=== PATIENT | male | born 1960 | race Caucasian/White ===

== ENCOUNTER 2020-07-29 14:01 | Inpatient (IN) | payer BC ==
[2020-07-29] VITALS (9 sets, daily range): BP systolic 100–141; BP diastolic 59–89
[~2020-07-29] VITALS: Ht 175.3 cm; Wt 72.0 kg
[2020-07-29] MEDS ORDERED: morphine 2 MG/ML inj. syringe IV ONE (14:40)
[2020-07-29 14:45] LABS: BASOPHILS # (AUTO) 0.1 X10'3 (0-0.2); BASOPHILS % (AUTO) 0.4 % (0-1); EOSINOPHILS % (AUTO) 0.4 % (0-6); HEMATOCRIT 45.5 % (42.0-52.0); HEMOGLOBIN 14.9 g/dl (14.0-17.9); LYMPHOCYTES # (AUTO) 2.3 X10'3 (1.1-4.8); LYMPHOCYTES % (AUTO) 20.7 % (21-51); MEAN CORPUSCULAR HEMOGLOBIN 30.7 PG (27.0-31.0); MEAN CORPUSCULAR HGB CONC 32.8 g/dL (33.0-36.5); MEAN CORPUSCULAR VOLUME 93.7 FL (78-98); MEAN PLATELET VOLUME 10.7 FL (7.4-10.4); MONOCYTES % (AUTO) 8.6 % (2-12); NEUTROPHILS # (AUTO) 7.9 X10'3 (1.8-7.7); NEUTROPHILS % (AUTO) 69.9 % (42-75); PLATELET COUNT 247 X10'3 (140-440); RED BLOOD COUNT 4.86 X10'6 (4.70-6.10); RED CELL DISTRIBUTION WIDTH 13.1 % (11.5-14.5); WHITE BLOOD COUNT 11.2 X10'3 (4.5-11.0)
[2020-07-29] MEDS ORDERED: ondansetron/PF 4mg/2ml inj IM ONE (14:45)
[2020-07-29 15:04] LABS: ALANINE AMINOTRANSFERASE 38 U/L (12-78); ALBUMIN 3.6 G/DL (3.4-5.0); ALBUMIN/GLOBULIN RATIO 1.2 (1.1-1.5); ALKALINE PHOSPHATASE 78 IU/L (46-116); ANION GAP 6 (8-16); ASPARTATE AMINO TRANSFERASE 116 U/L (10-37); BILIRUBIN,TOTAL 0.8 MG/DL (0.1-1.0); BLOOD UREA NITROGEN 12 MG/DL (7-18); BUN/CREATININE RATIO 12.5 (5.4-32.0); CHLORIDE 105 MMOL/L (99-107); CREATININE 0.96 MG/DL (0.60-1.10); GLUCOSE 86 MG/DL (70-104); POTASSIUM 4.2 MMOL/L (3.5-5.1); SODIUM 140 MMOL/L (135-145); TOTAL CARBON DIOXIDE 29.4 MMOL/L (24-32); TOTAL PROTEIN 6.5 G/DL (6.4-8.2); eGFR 80 ML/MIN
[2020-07-29] MEDS ORDERED: TRAM50TA2 PO (15:12)
[2020-07-29] MEDS ORDERED: MULT-1085 PO (15:12)
[2020-07-29] MEDS ORDERED: LISI40TA4 PO (15:12)
[2020-07-29] MEDS ORDERED: BUPR100T5 PO (15:12)
[2020-07-29] MEDS ORDERED: ATOR40TA71 PO (15:12)
[2020-07-29] MEDS ORDERED: MELO-102 PO (15:12)
[2020-07-29] MEDS ORDERED: INUL2TAB5 PO (15:12)
[2020-07-29] MEDS ORDERED: DIPYRIDAMOLE 25 MG PO STA (15:13)
[2020-07-29] MEDS ORDERED: TIZA2TAB7 PO (15:13)
--- NOTE | 2020-07-29 15:26 | NUR ---
ASKED DR. 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
--- NOTE | 2020-07-29 15:28 | NUR ---
DYPERIDAMOLE NOT AVAILABLE IN THE [facility],PHARMACY TO DELIVER.
--- NOTE | 2020-07-29 15:33 | NUR ---
dr. barrett at bedside.
[2020-07-29 15:51] LABS: PLATELET ESTIMATE NORMAL
[2020-07-29 15:52] LABS: LARGE PLATELETS FEW
[2020-07-29] MEDS ORDERED: LIDOcaine/PRILOcaine 5gm cream TP ONE (15:55)
[2020-07-29] MEDS: tirofiban 5mg in NS 100mL 100 ML IV SCH ×2 (16:04→19:29)
[2020-07-29] MEDS ORDERED: diphenhydrAMINE 50 mg/ml inj ONE (16:12)
[2020-07-29] MEDS ORDERED: verapamil 2.5 mg/ml inj IV ONE (16:12)
[2020-07-29] MEDS ORDERED: heparin 1,000unit/ml 10ml vial 10 ML ONE (16:12)
[2020-07-29] MEDS ORDERED: midazolam 2 mg/2 ml injection ONE (16:12)
[2020-07-29] MEDS ORDERED: LIDOcaine 1% (10mg/ml)w/preservative injection 20ml MDV ONE (16:12)
[2020-07-29] MEDS ORDERED: fentaNYL/PF 50MCG/1 ML 2ML syringe ONE (16:12)
[2020-07-29] MEDS ORDERED: nitroGLYCERIN-Tridil 50MG/D5W 250 ML IV ONE (16:12)
[2020-07-29] MEDS ORDERED: iohexol 350 MG/1 ML 200ml bottle ONE (16:13)
[2020-07-29] MEDS ORDERED: famotidine/PF 10 mg/ml inj IV ONE (16:13)
[2020-07-29] MEDS ORDERED: iohexol 350 MG/ML 50ML vial IV ONE (16:13)
--- NOTE | 2020-07-29 16:20 | NUR ---
bolusing patient with aggrenox per order.bolusing 36ml over 5 minutes. Addendum: 07/29/20 at 1621 by MOHAMUD giving aggrestat.
--- NOTE | 2020-07-29 16:22 | NUR ---
GROUT MACHINE TENDER RN AT BEDSIDE.
--- NOTE | 2020-07-29 16:27 | NUR ---
PATIENT TO CLINIC OFFICE MANAGER.EXTENSION TUBING PLACED,PATIENT STILL RECEIVING BOLUS OF AGGRASTAT.REMAINS ASYMPTOMATIC.
[2020-07-29] MEDS ORDERED: clopidogrel 300mg tablet ONE (17:22)
[2020-07-29] MEDS ORDERED: nitroGLYCERIN 0.4mg SUBLingual tab SL ONE (17:34)
--- NOTE | 2020-07-29 18:31 | NUR ---
PAGED HOSPITALIST GROUP: "PAGER ID: [phone] MESSAGE: [phone] PT [facility] HOSPITALIST TO ADMIT, KATHI NOT ADMITTING. ONLY CONSULT. THANK YOU. PATRIA [id number]"
[2020-07-29] MEDS: normal saline 1000ml 1,000 ML IV SCH (18:45)
[2020-07-29] MEDS ORDERED: magnesium 2GM in 50ml NS 50 ML IV PRN (19:00)
[2020-07-29] MEDS ORDERED: mag hydrox/Alum hydrox/simeth 30ml oral suspension PO PRN (19:00)
[2020-07-29] MEDS ORDERED: HYDROcodone/acetaminophen 5mg/325mg tablet PO PRN (19:00)
[2020-07-29] MEDS ORDERED: magnesium 4gm in 100ml NS 100 ML IV PRN (19:00)
[2020-07-29] MEDS ORDERED: potassium Cl 20 mEq SR tablet PO PRN ×2 (19:00)
[2020-07-29] MEDS ORDERED: acetaminophen 325mg tablet PO PRN ×2 (19:00)
[2020-07-29] MEDS ORDERED: diphenhydrAMINE 25mg capsule PO PRN (19:00)
[2020-07-29] MEDS ORDERED: bisacodyl 10mg suppository rectal RC PRN (19:00)
[2020-07-29] MEDS ORDERED: acetaminophen 650mg rectal suppository RC PRN (19:00)
[2020-07-29] MEDS ORDERED: magnesium Cl slow-release 64mg tablet PO PRN (19:00)
[2020-07-29] MEDS ORDERED: morphine 2 MG/ML inj. syringe IV PRN ×2 (19:00)
[2020-07-29] MEDS ORDERED: ondansetron/PF 4mg/2ml inj IV PRN (19:00)
[2020-07-29] MEDS ORDERED: potassium CL 10mEq/100ml bag 100 ML IV PRN ×2 (19:00)
[2020-07-29] MEDS ORDERED: magnesium hydroxide 30ml (MOM) UD suspension PO PRN (19:00)
[2020-07-29] MEDS: K and/or MAG REPLACEMENT MC SCH (19:25)
[2020-07-29] MEDS: HYDROcodone/acetaminophen 10/325mg tab PO PRN (19:30)
[2020-07-29] MEDS: lisinopril 20mg tablet PO SCH (19:31)
[2020-07-29] MEDS: metoprolol tartrate 25mg tablet PO SCH (19:31)
[2020-07-29] MEDS: buPROPion SR 100mg tab PO SCH (19:32)
[2020-07-29 19:57] LABS: HEMOGLOBIN A1C 5.5 % (4.5-6.2)
[2020-07-29] MEDS ORDERED: non-formulary drug (Lisinopril* 1 TAB) PO SCH (21:00)
[2020-07-29] MEDS ORDERED: atorvastatin 20mg tablet PO SCH (21:00)
[2020-07-29] MEDS ORDERED: multivitamins, therapeutics tablet PO SCH (21:00)
[2020-07-30 00:15] VITALS: BP 100/59
[2020-07-30] MEDS: normal saline 1000ml 1,000 ML IV SCH (01:25)
[2020-07-30 02:00] VITALS: BP 92/58
[2020-07-30] MEDS: HYDROcodone/acetaminophen 10/325mg tab PO PRN ×2 (05:09→15:15)
[2020-07-30 05:52] LABS: BASOPHILS % (AUTO) 0.5 % (0-1); EOSINOPHILS # (AUTO) 0.1 X10'3 (0-0.9); EOSINOPHILS % (AUTO) 1.2 % (0-6); HEMATOCRIT 41.9 % (42.0-52.0); HEMOGLOBIN 13.7 g/dl (14.0-17.9); LYMPHOCYTES % (AUTO) 28.1 % (21-51); MEAN CORPUSCULAR HEMOGLOBIN 31.1 PG (27.0-31.0); MEAN CORPUSCULAR HGB CONC 32.8 g/dL (33.0-36.5); MEAN CORPUSCULAR VOLUME 94.8 FL (78-98); MEAN PLATELET VOLUME 10.7 FL (7.4-10.4); MONOCYTES # (AUTO) 1.1 X10'3 (0-0.9); NEUTROPHILS # (AUTO) 3.9 X10'3 (1.8-7.7); NEUTROPHILS % (AUTO) 55.2 % (42-75); PLATELET COUNT 220 X10'3 (140-440); RED BLOOD COUNT 4.42 X10'6 (4.70-6.10)
[2020-07-30 06:00] VITALS: BP 114/83
--- NOTE | 2020-07-30 06:30 | NUR ---
Patient in room MED 309. I have received report from RENETTA Lopez and had the opportunity to ask questions and assume patient care.
[2020-07-30 06:33] LABS: ALANINE AMINOTRANSFERASE 41 U/L (12-78); ALBUMIN 3.2 G/DL (3.4-5.0); ALBUMIN/GLOBULIN RATIO 1.1 (1.1-1.5); ALKALINE PHOSPHATASE 79 IU/L (46-116); ANION GAP 3 (8-16); ASPARTATE AMINO TRANSFERASE 95 U/L (10-37); BILIRUBIN,TOTAL 0.4 MG/DL (0.1-1.0); BLOOD UREA NITROGEN 18 MG/DL (7-18); CALCIUM 7.8 MG/DL (8.5-10.1); CHLORIDE 106 MMOL/L (99-107); CHOL/HDL RATIO 2.3 (0.00-4.99); CHOLESTEROL 103 MG/DL (0-200); CREATININE 1.06 MG/DL (0.60-1.10); GLUCOSE 104 MG/DL (70-104); HDL CHOLESTEROL 45 MG/DL (35-60); LDL CHOLESTEROL 39 MG/DL (50-100); MAGNESIUM 2.2 MG/DL (1.5-2.4); PHOSPHORUS 4.7 MG/DL (2.3-4.5); POTASSIUM 4.2 MMOL/L (3.5-5.1); SODIUM 139 MMOL/L (135-145); TOTAL CARBON DIOXIDE 30.3 MMOL/L (24-32); TOTAL PROTEIN 6.2 G/DL (6.4-8.2); TRIGLYCERIDES 161 MG/DL (20-135); eGFR 71 ML/MIN
--- NOTE | 2020-07-30 06:45 | NUR ---
Problems reprioritized. Patient report given, questions answered & plan of care reviewed with CONNER JACKSON .
[2020-07-30] MEDS: buPROPion SR 100mg tab PO SCH (08:41)
[2020-07-30] MEDS: lisinopril 20mg tablet PO SCH (08:42)
[2020-07-30] MEDS: metoprolol tartrate 25mg tablet PO SCH (08:42)
[2020-07-30] MEDS: K and/or MAG REPLACEMENT MC SCH (08:44)
[2020-07-30 11:00] VITALS: BP 125/81
[2020-07-30] MEDS ORDERED: clopidogrel 75mg tablet PO SCH (14:25)
--- NOTE | 2020-07-30 14:50 | NUR ---
DR. VARGHESE PAGED: PAGER ID: [phone] MESSAGE: [phone]: JOYCE - MRI DONE, RAD. REPORT PENDING. TY
[2020-07-30 15:00] VITALS: BP 153/88
[2020-07-30] MEDS ORDERED: CLOP75TA35 PO (16:56)
[2020-07-30] MEDS ORDERED: ASPI-611 PO (16:56)
[2020-07-30] MEDS ORDERED: METO25TA6 PO (16:56)
[2020-07-30] MEDS ORDERED: aspirin 325mg tablet PO ONE (17:00)
[2020-07-30] MEDS ORDERED: aspirin 81mg tab.chew PO ONE (17:25)
--- NOTE | 2020-07-30 18:18 | NUR ---
pt. discharged from facility at 1800. pt. was picked up by his girlfriend. pt. signed and understood all paperwork. pt. understands to make f/u appointment with Dr. Queen and has the phone number to call. pt. 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 pt. IVs were D/C intact. pt. left with all belongings.
== END 2020-07-30 18:40 | disposition home or self-care (01) | DRG 247 ==
LOC: ER 14:02 → MED 3N 18:57
PROVIDERS: ADMIT Family Medicine; ATTEND Family Medicine
PROC: 4A023N7 Measurement of Cardiac Sampling and Pressure, Left Heart, Percutaneous Approach (ICD-10-PCS; principal; 2020-07-29)
PROC: 027034Z Dilation of Coronary Artery, One Artery with Drug-eluting Intraluminal Device, Percutaneous Approach (ICD-10-PCS; 2020-07-29)
PROC: B2111ZZ Fluoroscopy of Multiple Coronary Arteries using Low Osmolar Contrast (ICD-10-PCS; 2020-07-29)
PROC: B2151ZZ Fluoroscopy of Left Heart using Low Osmolar Contrast (ICD-10-PCS; 2020-07-29)
DX: I21.4 Non-ST elevation (NSTEMI) myocardial infarction (principal); I10 Essential (primary) hypertension; E78.00 Pure hypercholesterolemia, unspecified; E78.5 Hyperlipidemia, unspecified; J44.9 Chronic obstructive pulmonary disease, unspecified; Z79.899 Other long term (current) drug therapy
CPT/HCPCS: 93306; 93458; 99285; C9600; 36415; 70544; 70547; 70551; 71045; 72141; 80053; 80061; 83036; 83735; 83880; 84100; 84484; 85025; 87081; 93005; 93880; 99152; 99153; A4620; A5120; A6258; C1725; C1751; C1769; C1874; C1894; G0378; J1200; J1644; J2001; J2250; J2270; J2405; J3010; J3246; J3490; Q9967